=== PATIENT | female | born 1950 | race Caucasian/White ===

== ENCOUNTER → 2016-10-13 | Outpatient (CLI) | payer BC ==
[~2016-10-13] MED LIST: AMOX875T PO; ANT25 PO
== END | disposition home or self-care (01) ==
LOC: C.PAPS 11:46
PROVIDERS: ATTEND Obstetrics & Gynecology
DX: Z01.419 Encounter for gynecological examination (general) (routine) without abnormal findings (principal)

== ENCOUNTER → 2016-10-13 | Outpatient (CLI) | payer BC | END | disposition home or self-care (01) | LOC: C.LAB1850 08:50 | PROVIDERS: ATTEND Obstetrics & Gynecology | DX: Z80.41 Family history of malignant neoplasm of ovary (principal) ==

== ENCOUNTER 2016-11-24 10:29 | Emergency (ER) | payer BC ==
[~2016-11-24] VITALS: Ht 160 cm; Wt 104.4 kg
[2016-11-24 10:41] VITALS: TEMP 36.6; Ht 160 cm; Wt 104.4 kg
[2016-11-24] MEDS ORDERED: MECLIZINE HCL 25 MG TAB PO STA (11:15)
--- NOTE | 2016-11-24 11:17 | EMERGENCY ROOM VISIT NOTE ---
History Report prepared by Essence: Abena Phillips Under the Supervision of: Dr. Jus Moreira D.O. First contact with patient: 11:07 Chief Complaint: VERTIGO Stated Complaint: V, DIZZY, LOSS OF BALANCE, ON ANTIBIOTIC/EAR INFEC Nursing Triage Summary: Patient states she feels off balance and had episode of nausea and vomiting today. Currently being treated for ear infection. History of Present Illness The patient is a 66 year old female who presents to the Emergency Room with complaints of persistent dizziness that began one week ago. The patient states that one week ago she started vomiting and noticed dizziness and a loss of balance. She states that by Wednesday her vomiting subsided, but states that her dizziness persisted. The patient states that she went to see her PCP and was found to have a right ear infection. She states that she was placed on an antibiotic. The patient states that today her dizziness and balance issues have persisted. She denies being referred to ENT. The patient denies any headache, neck pain, neck stiffness, fever, weakness in her arms or legs, or urinary symptoms. She notes intermittent chills. The patient denies any medical problems, denying any previous stroke, diabetes, or hypertension. She notes that she has had vertigo in the past, but nothing this severe. Source of History: patient Onset: one week ago Position: other (global) Quality: other (dizziness) Timing: other (persistent) Associated Symptoms: + chills, + vomiting, No fevers, No headache, No neck pain, No urinary symptoms, No weakness Note: Associated Symptoms: loss of balance. Review of Systems See HPI for pertinent positives & negatives. A total of 10 systems reviewed and were otherwise negative. Past Medical & Surgical Medical Problems: (1) Nausea & vomiting Family History Carlos's disease FH: COPD (chronic obstructive pulmonary disease) FH: breast cancer FH: ovarian cancer Social History Smoking Status: Never Smoker Drug Use: none Marital Status: single Occupation Status: employed Current/Historical Medications Scheduled Amoxicillin & Pot Clavulanate (Augmentin 875-125 mg), 1 TAB PO BID Meclizine HCl (Meclizine HCl), 25 MG PO Q8 Allergies Coded Allergies: No Known Allergies (Verified , 11/24/16) Physical Exam Vital Signs Date Time Temp Pulse Resp B/P Pulse Ox O2 Delivery O2 Flow Rate FiO2 11/24/16 13:01 64 16 128/71 96 11/24/16 11:57 56 18 140/88 99 Room Air 11/24/16 10:41 36.6 72 20 157/88 99 Room Air Physical Exam GENERAL: Patient is awake, alert, and in no acute distress. Patient is resting comfortably and showing no signs of anxiety EYES: The conjunctivae are clear. The pupils are round and reactive. EARS, NOSE, MOUTH AND THROAT: The nose is without any evidence of any deformity. Mucous membranes are moist tongue is midline. Posterior oropharynx is clear. Left TM is obscured by cerumen, right ear is erythematous and bulging. No discharge or erythema noted in outer ear. No tenderness over mastoids. NECK: The neck is nontender and supple. RESPIRATORY: Normal respiratory effort is noted there is no evidence of wheezing rhonchi or rales CARDIOVASCULAR: Regular rate and rhythm noted there no murmurs rubs or gallops normal S1 normal S2 GASTROINTESTINAL: The abdomen is soft. Bowel sounds are present in all quadrants. Abdomen is nontender MUSCULOSKELETAL/EXTREMITIES: There is no evidence of gross deformity full range of motion is noted in the hips and shoulders SKIN: There is no obvious evidence of any rash. There are no petechiae, pallor or cyanosis noted. NEUROLOGIC: Patient is awake alert and oriented x3 strength is symmetric patellar reflexes are 2+ bilaterally. Rapid alternating movements were symmetric, no past pointing elicited. Medical Decision & Procedures ER Provider Diagnostic Interpretation: CT results as stated below per my review and radiologist interpretation. HEAD CT NONCONTRAST CT DOSE: 537.48 mGy.cm HISTORY: Mental status change vertigo TECHNIQUE: Multiaxial CT images of the head were performed without the use of intravenous contrast. Comparison: None. Findings: The paranasal sinuses and mastoid air cells are clear. The calvarium and skull base are intact. The ventricles and sulci are within normal limits. There is no mass, hematoma, midline shift, or acute infarct. Impression: No acute intracranial abnormality. Electronically signed by: Chalino Delatorre M.D. 11/24/2016 11:59 AM Dictated Date/Time: 11/24/2016 11:59 AM Medications Administered Medications (Trade) Dose Ordered Sig/Lucio Route Start Time Stop Time Status Last Admin Dose Admin Meclizine HCl (Antivert Tab) 25 mg NOW STAT PO 11/24/16 11:15 11/24/16 11:17 DC 11/24/16 11:20 25 MG ED Course 1109: The patient was evaluated in room C11B. A complete history and physical examination were performed. 1115: Ordered Meclizine HCl 25 mg PO. 1228: I reevaluated the patient and she is resting comfortably. I discussed the exam findings with her and I discussed the treatment plan. She verbalized complete understanding and agreement. She is ready to go home. Medical Decision Differential diagnosis: Etiologies such as benign positional vertigo, dehydration, hypovolemia, anemia, tumor, infection, hypoglycemia, electrolyte abnormalities, cardiac sources, intracerebral event, toxicologic, neurologic, as well as others were entertained. Nursing notes reviewed. The patient is a 66-year-old female who is currently being treated for otitis through her primary care physician. The patient started to notice vertigo symptoms. She noted difficulty ambulating because she felt off balance. The patient has no focal neurologic deficit. This appears to be peripheral vertigo on physical exam. The patient had a normal CT the head at this time. She was treated with meclizine was feeling much better. I discussed patient's radiographic studies with her. She was encouraged to rest and avoid any strenuous activity. She was also encouraged to continue all medications as prescribed. She was also follow-up with primary care physician for further evaluation and for possible further studies such as an MRI the brain or a referral to ear nose and throat physician if symptoms do not improve. She was also encouraged return to emergency department immediately if symptoms change worsen or the need arises. Impression Primary Impression: Vertigo Additional Impression: Right otitis media Scribe Attestation The scribe's documentation has been prepared under my direction and personally reviewed by me in its entirety. I confirm that the note above accurately reflects all work, treatment, procedures, and medical decision making performed by me. Departure Information Dispostion Home / Self-Care Prescriptions Meclizine HCl (Meclizine HCl) 25 Mg Tab 25 MG PO Q8 for Dizziness or Vertigo, #25 TABS Prov: Jus Moreira, 11/24/16 Referrals Binta Workman C.R.N.P. (PCP) Forms HOME CARE DOCUMENTATION FORM, IMPORTANT VISIT INFORMATION, WORK / SCHOOL INSTRUCTIONS, Work Instructions Patient Instructions ED Vertigo Unspecified, My [facility] Additional Instructions Continue all medications as prescribed. Call your family to schedule follow- up appointment. You may require further studies or a referral by your nose and throat to further evaluate the cause of your dizziness and near ear infection. Rest and avoid any strenuous activity. Return to the emergency department if symptoms worsen or if need arises. Problem Qualifiers
[2016-11-24] MEDS ORDERED: AMOX875T PO (11:44)
--- NOTE | 2016-11-24 12:01 | DIAGNOSTIC IMAGING REPORT ---
HEAD CT NONCONTRAST CT DOSE: 537.48 mGy.cm HISTORY: Mental status change vertigo TECHNIQUE: Multiaxial CT images of the head were performed without the use of intravenous contrast. Comparison: None. Findings: The paranasal sinuses and mastoid air cells are clear. The calvarium and skull base are intact. The ventricles and sulci are within normal limits. There is no mass, hematoma, midline shift, or acute infarct. Impression: No acute intracranial abnormality. Electronically signed by: Chalino Delatorre M.D. 11/24/2016 11:59 AM Dictated Date/Time: 11/24/2016 11:59 AM
[2016-11-24] MEDS ORDERED: ANT25 PO (12:49)
[2016-11-24 13:01] VITALS: BP 128/71; PULSE 64; O2SAT 96
== END 2016-11-24 13:03 | disposition home or self-care (01) ==
LOC: C.EDB 10:32 → C.EDC 13:03
DX: R42 Dizziness and giddiness (principal); H66.91 Otitis media, unspecified, right ear; Z79.899 Other long term (current) drug therapy; Z80.3 Family history of malignant neoplasm of breast; Z80.41 Family history of malignant neoplasm of ovary; Z82.5 Family history of asthma and other chronic lower respiratory diseases

== ENCOUNTER → 2017-10-07 | Outpatient (CLI) | payer BC ==
--- NOTE | 2017-10-07 13:46 | MAMMOGRAPHY REPORT ---
BILATERAL DIGITAL SCREENING MAMMOGRAM TOMOSYNTHESIS WITH CAD: 10/07/2017 CLINICAL HISTORY: Routine screening. Patient has no complaints. TECHNIQUE: Breast tomosynthesis in addition to standard 2D mammography was performed. Current study was also evaluated with a Computer Aided Detection (CAD) system. COMPARISON: Comparison is made to exams dated: 10/06/2016 mammogram, 10/02/2015 mammogram, 4 mammogram, 10/03/2013 mammogram, 09/29/2013 mammogram, and 10/06/2011 mammogram - [facility]. BREAST COMPOSITION: The tissue of both breasts is heterogeneously dense, which may obscure small mas ses. FINDINGS: No suspicious masses, calcifications, or areas of architectural distortion are noted in ei ther breast. There has been no significant interval change compared to prior exams. A circumscribed benign-appearing 10 mm mass is again seen within the left subareolar breast, which was shown to repre sent a benign cyst on the prior 2012 ultrasound exam. Scattered bilateral benign-appearing calcifica tions are again noted. IMPRESSION: ACR BI-RADS CATEGORY 2: BENIGN There is no mammographic evidence of malignancy. A 1 year screening mammogram is recommended. The pa tient will receive written notification of the results. Approximately 10% of breast cancers are not detected with mammography. A negative mammographic report should not delay biopsy if a clinically suggestive mass is present. Caryl Baker M.D. /:10/07/2017 07:44:13 Metal Patternmaker: Jenelle Carl, [facility] letter sent: Normal 1/2 BI-RADS Code: ACR BI-RADS Category 2: Benign
== END | disposition home or self-care (01) ==
LOC: C.MAMM 07:24
PROVIDERS: ATTEND Nurse Practitioner Adult Health
DX: Z12.31 Encounter for screening mammogram for malignant neoplasm of breast (principal)

== ENCOUNTER → 2017-10-14 | Outpatient (CLI) | payer BC | END | disposition home or self-care (01) | LOC: C.PAPS 10:33 | PROVIDERS: ATTEND Physician Assistant | DX: Z01.419 Encounter for gynecological examination (general) (routine) without abnormal findings (principal) ==